=== PATIENT | female | born 1970 | race Caucasian/White ===

== ENCOUNTER 2018-03-20 01:37 | Emergency (ER) | payer BC ==
[~2018-03-20] VITALS: Ht 162.6 cm; Wt 113.6 kg
[~2018-03-20 01:37] MED LIST: CEPH-443; METF-849
[2018-03-20 01:53] VITALS: Ht 162.6 cm; Wt 113.6 kg
[2018-03-20] MEDS ORDERED: ONDANSETRON 4 MG INJ IV STA (02:42)
[2018-03-20] MEDS ORDERED: KETOROLAC 30 MG INJ IV STA (03:34)
[2018-03-20] MEDS ORDERED: CIPR500T4 PO (03:41)
--- NOTE | 2018-03-20 03:43 | ERD ---
ER Documentation Chief Complaint Chief Complaint CP X'S 1 DAY HPI This is a 47-year-old female with a history of diabetes who presents to the ER for evaluation of chest pain, congestion, headache for the past 24 hours. The patient states that her pain is constant and is located in the center of her chest worse with deep inspiration and coughing. The patient denies any diaphoresis, blurred vision or heart palpitations at this time. She denies any aggravating or relieving factors for her symptoms. ROS All systems reviewed and are negative except as per history of present illness. Medications Home Meds Reported Medications Ciprofloxacin Hcl* (Ciprofloxacin Hcl*) 500 Mg Tablet, 500 MG PO BID, #14 TAB 03/20/18 Discontinued Reported Medications Cephalexin* (Keflex*) 500 Mg Capsule 04/30/12 Metformin* (Glucophage*) 500 Mg Tab 04/30/12 Allergies Allergies: Coded Allergies: No Known Drug Allergies (Verified Allergy, Unknown, 03/20/18) PMhx/Soc History of Surgery: Yes (TONSILLECTOMY, KIDNEY STONES, RENAL STENT L KIDNEY) Anesthesia Reaction: No Hx Neurological Disorder: No Hx Respiratory Disorders: No Hx Cardiac Disorders: No Hx Psychiatric Problems: No Hx Miscellaneous Medical Probl: Yes (DM) Hx Alcohol Use: No Hx Substance Use: No Hx Tobacco Use: No Smoking Status: Never smoker Physical Exam Vitals Vital Signs Date Temp Pulse Resp B/P (MAP) Pulse Ox O2 O2 Flow FiO2 Time Delivery Rate 03/20/18 98.3 84 18 159/85 98 Room Air 01:53 (109) 03/20/18 98.3 84 18 159/85 98 01:53 (109) Physical Exam INITIAL VITAL SIGNS: Reviewed by me GENERAL: The patient is well developed and appropriate for usual state of health in no apparent distress HEENT: Pupils equal, round, and reactive to light. EOMI. There is no scleral icterus. NECK: C-spine is soft and supple, there is no meningismus. There is no cervical lymphadenopathy. LUNGS: Clear to auscultation bilaterally. There are no rales, wheezes or rhonchi. HEART: Regular rate and rhythm, no murmurs, clicks, rubs or gallops. ABDOMEN: Soft, non-tender, non-distended. There are bowel sounds in all four quadrants. No rebound or guarding. EXTREMITIES: There is no peripheral cyanosis or edema. No focal swelling or erythema. NEUROLOGICAL: The patient moves all four extremities with 5/5 strength. Cranial nerves II - XII are intact. Normal gait. Alert and oriented SKIN: There is no apparent rash or petechiae. HEME/LYMPHATIC: There is no evidence of excessive bruising or lymphedema. PSYCHIATRIC: The patient does not appear anxious or depressed. Result Diagram: 03/20/1821403/20/18214 Results 24 hrs Laboratory Tests Test 03/20/18 02:15 White Blood Count 11.9 10^3/ul Red Blood Count 5.20 10^6/ul Hemoglobin 13.1 g/dl Hematocrit 41.7 % Mean Corpuscular Volume 80.2 fl Mean Corpuscular Hemoglobin 25.2 pg Mean Corpuscular Hemoglobin Concent 31.4 g/dl Red Cell Distribution Width 13.6 % Platelet Count 451 10^3/UL Mean Platelet Volume 9.4 fl Immature Granulocytes % 0.600 % Neutrophils % 67.2 % Lymphocytes % 24.2 % Monocytes % 5.6 % Eosinophils % 2.0 % Basophils % 0.4 % Nucleated Red Blood Cells % 0.0 /100WBC Immature Granulocytes # 0.070 10^3/ul Neutrophils # 8.0 10^3/ul Lymphocytes # 2.9 10^3/ul Monocytes # 0.7 10^3/ul Eosinophils # 0.2 10^3/ul Basophils # 0.1 10^3/ul Nucleated Red Blood Cells # 0.0 10^3/ul Sodium Level 139 mmol/L Potassium Level 3.8 mmol/L Chloride Level 96 mmol/L Carbon Dioxide Level 27 mmol/L Anion Gap 16 Blood Urea Nitrogen 17 mg/dl Creatinine 0.67 mg/dl Est Glomerular Filtrat Rate mL/min > 60 mL/min Glucose Level 192 mg/dl Calcium Level 10.0 mg/dl Troponin I < 0.012 ng/ml Current Medications Medications Dose Sig/Savage Start Time Status Last (Trade) Ordered Route PRN Stop Time Admin Dose Reason Admin Ondansetron 4 mg ONCE STAT 03/20/18 DC 03/20/18 HCl (Zofran IV 02:42 03/20/18 02:51 Inj) 02:43 Ketorolac 30 mg ONCE STAT 03/20/18 DC Tromethamine IV 03:34 1/5/19 (Toradol) 03:35 Procedures/MDM EKG: Rate/Rhythm: [Normal Sinus Rhythm] QRS, ST, T-waves: [No changes consistent w/ acute ischemia] Impression: [No evidence of ischemia or arrhythmia] Chest X-ray 1V Interpreted by me: Soft Tissue: No acute abnormalities Bones: No acute abnormalities Mediastinum/Cardiac Silhouette/Lungs: [No acute abnormalities] This 47-year-old female presents the ER for evaluation of multiple complaints including congestion, dry cough, chest pain, and headache. On my exam the patient was alert and oriented to person place and time, she was afebrile, nontoxic-appearing and hemodynamically stable. The patient was hypertensive in triage however her blood pressure is now 148/90. She states her symptoms have improved. The patient was given Zofran and Toradol for nausea and her chest pain. And on reevaluation she states she is feeling better. The patient will be discharged at this time with instructions to follow-up with her PCP as outpatient for stress testing. She verbalized understanding and she was advised she can return to the emergency room at any moment for reevaluation if her pain worsens. Differential diagnoses entertained was broad with potential high acuity. Patient has been evaluated for acute myocardial infarction, unstable angina, aortic dissection, pulmonary embolism, other intrathoracic and cardiac concerns. Ultimately the patient's evaluation is nondiagnostic. Based on the patient's lack of risk factors, as well as the patient's clinical, laboratory, and imaging data, the patient appears to be low risk for these high risk causes of chest pain. Departure Diagnosis: Primary Impression: Chest pain Additional Impression: Hypertension Condition: Stable MARYCRUZROBYNJENNIFER IRIZARRY Mar 20, 2018 03:43
[2018-03-20] MEDS ORDERED: MTF1000T PO (03:45)
[2018-03-20] MEDS ORDERED: BIOT1TAB10 PO (03:45)
[2018-03-20] MEDS ORDERED: MULTI PO (03:45)
[2018-03-20] MEDS ORDERED: ONDA4TAB13 PO (03:46)
[2018-03-20 04:11] VITALS: BP 143/74; PULSE 75; RESP 18
--- NOTE | 2018-03-20 07:00 | NUR ---
Patient arrived on ICU, HR 120's BP 183/160. Running Propofol at 20, Levo at 4, NS at 250. 7.5 ETT, AC 20 FIO2 100 TV 500 PEEP 1.3. Right Chest tube in place to suction. Will endorse to oncoming day shift nurse. All questions answered.
== END 2018-03-20 04:13 | disposition home or self-care (01) ==
LOC: E/R 01:37
DX: R07.9 Chest pain, unspecified (principal); I10 Essential (primary) hypertension; E11.9 Type 2 diabetes mellitus without complications; Z79.84 Long term (current) use of oral hypoglycemic drugs
CPT/HCPCS: 36415; 71045; 80048; 81025; 84484; 85025; 93005; 96374; 96375; 99285; J1885; J2405